=== PATIENT | female | born 1965 | race African-American/Black ===

== ENCOUNTER 2016-08-03 16:34 | Emergency (ER) | payer MEDICARE ==
[~2016-08-03 16:34] MED LIST: CATAPRES0.2 MG PO; ISOSORBIDE DINI20 MG PO; NORVASC5 MG PO; PEPCID20 MG PO; ZESTRIL40 MG PO
== END 2016-08-03 18:36 | disposition home or self-care (01) ==
LOC: D.ER 16:34
DX: S80.01XA Contusion of right knee, initial encounter (principal); X58.XXXA Exposure to other specified factors, initial encounter; Y93.89 Activity, other specified; Y92.89 Other specified places as the place of occurrence of the external cause; I10 Essential (primary) hypertension; I50.9 Heart failure, unspecified

== ENCOUNTER → 2017-05-15 18:12 | Outpatient (CLI) | payer MEDICARE | END | disposition home or self-care (01) | LOC: D.MAMMO 15:45 | DX: Z12.31 Encounter for screening mammogram for malignant neoplasm of breast (principal) ==